=== PATIENT | male | born 1980 | race Caucasian/White ===

== ENCOUNTER 2019-05-01 07:09 | Emergency (ER) | payer MEDICAID ==
[~2019-05-01] VITALS: Ht 185.4 cm; Wt 98.0 kg
[2019-05-01 07:11] VITALS: BP 126/89
--- NOTE | 2019-05-01 07:23 | NUR ---
SEES DR ARREDONDO ON THURSDAY 05/03 AT 10 AM FOR PRESCRIPTION AND GENERAL MENTAL HEALTH MANAGEMENT, ASKING FOR TWO DAY REFILL FOR KLONIPIN TODAY
[2019-05-01] MEDS ORDERED: CLON-527 PO (07:53)
== END 2019-05-01 07:59 | disposition home or self-care (01) ==
LOC: ER 07:10
DX: F41.9 Anxiety disorder, unspecified (principal); Z76.0 Encounter for issue of repeat prescription; F32.9 Major depressive disorder, single episode, unspecified; F43.10 Post-traumatic stress disorder, unspecified
CPT/HCPCS: 99283

== ENCOUNTER 2022-01-09 11:23 | Emergency (ER) | payer MEDICAID ==
[~2022-01-09] VITALS: Ht 188 cm; Wt 77.3 kg
[~2022-01-09 11:23] MED LIST: CLON-527 PO
[2022-01-09 11:26] VITALS: BP 136/87
[2022-01-09] MEDS ORDERED: METO-539 PO (12:17)
[2022-01-09] MEDS ORDERED: clonazePAM 1mg tablet PO ONE (12:20)
== END 2022-01-09 12:32 | disposition home or self-care (01) ==
LOC: ER 11:24
DX: I10 Essential (primary) hypertension (principal); F43.10 Post-traumatic stress disorder, unspecified; F41.9 Anxiety disorder, unspecified; F32.A Depression, unspecified; Z79.899 Other long term (current) drug therapy; Z88.8 Allergy status to other drugs, medicaments and biological substances; Z76.0 Encounter for issue of repeat prescription
CPT/HCPCS: 99283